=== PATIENT | male | born 1980 | race Caucasian/White ===

== ENCOUNTER 2019-03-17 22:41 | Emergency (ER) | payer SELFPAY ==
[~2019-03-17] VITALS: Ht 170.2 cm; Wt 77.1 kg
--- NOTE | 2019-03-17 22:41 | NUR ---
PT [facility] BLS. TAKEN TO BED 7
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
[2019-03-17 22:42] VITALS: BP 136/80
--- NOTE | 2019-03-17 22:50 | NUR ---
[facility] [employer] CALLED, SPOKE WITH TRISTAN WHO STATED THAT BECAUSE PT DOES NOT WANT TO FILE A REPORT, AN OFFIFER WILL NOT BE DISPATCHED OUT.
--- NOTE | 2019-03-17 22:57 | NUR ---
Dr. Watts examining patient.
[2019-03-17] MEDS ORDERED: LIDOCAINE/EPI 1% 1:100000 20 ML VIAL INJ ONE (23:05)
[2019-03-17] MEDS ORDERED: BACITRACIN OINT 500 UNITS/GM PKT TP ONE (23:05)
--- NOTE | 2019-03-17 23:12 | NUR ---
X-Ray at bedside.
[2019-03-18] VITALS: BP 138/81
--- NOTE | 2019-03-18 | NUR ---
Patient discharged with v/s stable. Written and verbal after care instructions given and explained. Patient alert, oriented and verbalized understanding of instructions. Ambulatory with steady gait. All questions addressed prior to discharge. ID band removed. Patient advised to follow up with PMD. Rx of NAPROSYN AND BACITRACIN given. Patient educated on indication of medication including possible reaction and side effects. Opportunity to ask questions provided and answered.
== END 2019-03-18 | disposition home or self-care (01) ==
LOC: MED 22:41
DX: S51.812A Laceration without foreign body of left forearm, initial encounter (principal); Z23 Encounter for immunization; F17.210 Nicotine dependence, cigarettes, uncomplicated; W22.8XXA Striking against or struck by other objects, initial encounter; Y93.89 Activity, other specified; Y92.099 Unspecified place in other non-institutional residence as the place of occurrence of the external cause; Y99.8 Other external cause status
CPT/HCPCS: 12002; 73090; 90471; 90715; 99283; J2001